=== PATIENT | female | born 1990 | race Caucasian/White ===

== ENCOUNTER 2022-12-21 12:47 | Inpatient (IN) | payer BC ==
[~2022-12-21] VITALS: Ht 165.1 cm; Wt 71.4 kg
--- NOTE | 2022-12-21 12:55 | NUR ---
JAMARI RA60 From Home "Kidney pain/L stent placement couple months ago pain worse today"
--- NOTE | 2022-12-21 13:15 | NUR ---
URINE SAMPLE OBTAINED
--- NOTE | 2022-12-21 13:55 | NUR ---
BLOOD SAMPLES OBTAINED
[2022-12-21] MEDS ORDERED: IV NS 0.9% 1,000 ML BAG IV ONE (14:00)
[2022-12-21 14:18] LABS: BILIRUBIN,URINE NEGATIVE (NEGATIVE); COLOR,URINE YELLOW (YELLOW); LEUKOCYTE ESTERASE ,URINE 3+ (NEGATIVE); NITRITE, URINE POSITIVE (NEGATIVE); PH,URINE 6.5 (5.0-8.0); PROTEIN,URINE 1+ mg/dl (NEGATIVE); UGLUCOSE NEGATIVE (NEGATIVE); UROBILINOGEN,URINE 0.2 EU/dL (0.2)
[2022-12-21] MEDS ORDERED: KETOROLAC TROMETHAMINE INJ 30 MG/ML VIAL ONE (14:28)
[2022-12-21] MEDS ORDERED: KETOROLAC TROMETHAMINE INJ 30 MG/ML VIAL IV ONE (14:30)
[2022-12-21 14:32] LABS: ALBUMIN 3.5 g/dL (3.4-5.0); BILIRUBIN,TOTAL 0.2 mg/dL (0.2-1.0); CALCIUM, SERUM 8.5 mg/dL (8.5-10.1); CREATININE 0.7 mg/dL (0.6-1.3); POTASSIUM 3.9 mmol/L (3.5-5.1); TOTAL PROTEIN, SERUM 7.4 g/dL (6.4-8.2)
--- NOTE | 2022-12-21 14:32 | NUR ---
[facility]
--- NOTE | 2022-12-21 14:39 | NUR ---
pt back from ct scan
[2022-12-21 15:17] LABS: RBC,URINE 21-50 /HPF (0-2)
[2022-12-21 15:18] LABS: BACTERIA,URINE Many /HPF (None Seen); SQUAMOUS EPITHELIAL CELL,UR Many /HPF (None Seen); WBC,URINE 51-80 /HPF (0-3)
--- NOTE | 2022-12-21 15:19 | NUR ---
made aware, pt wants to have food. DR BAIN REPLIED NOT YET
[2022-12-21 15:20] LABS: URINE AMORPHOUS URATE Many /HPF (None Seen)
[2022-12-21 15:25] LABS: BASOPHILS % (AUTO) 0.9 % (0.0-2.0); EOSINOPHILS % (AUTO) 2.8 % (0.0-6.0); HEMATOCRIT 31 % (33-45); LYMPHOCYTES % (AUTO) 40.9 % (20.0-44.0); MEAN CORPUSCULAR HGB CONC 32 g/dl (31.0-36.0); MEAN CORPUSCULAR VOLUME 82 fL (82-100); MONOCYTES # (AUTO) 0.4 K/uL (0.1-1.30); MONOCYTES % (AUTO) 8.4 % (2.0-12.0); NEUTROPHILS # (AUTO) 2.3 K/uL (1.8-8.9); PLATELET COUNT (AUTO) 287 K/uL (150-450); RED BLOOD CELL COUNT(AUTO) 3.77 MIL/uL (4.0-5.2)
--- NOTE | 2022-12-21 16:09 | NUR ---
COVID SWAB OBTAINED
--- NOTE | 2022-12-21 16:12 | NUR ---
MOVE SHEET SUBMITTED.
[2022-12-21] MEDS ORDERED: MORPHINE SULFATE INJ 2 MG/ML DISP.SYRIN ONE (16:13)
[2022-12-21] MEDS ORDERED: ESCI10TA PO (16:29)
[2022-12-21] MEDS ORDERED: MORPHINE SULFATE INJ 2 MG/ML DISP.SYRIN IV ONE (16:30)
[2022-12-21] MEDS ORDERED: CEFTRIAXONE 1GM BAG (ER ONLY) 50 ML IV ONE (17:19)
[2022-12-21] MEDS ORDERED: ZOLPIDEM TARTRATE 5 MG TABLET PO PRN (17:30)
[2022-12-21] MEDS ORDERED: ONDANSETRON HCL/PF 4 MG/2 ML VIAL IVP PRN (17:30)
[2022-12-21] MEDS ORDERED: MAGNESIUM HYDROXIDE 30 ML UDC PO PRN (17:30)
[2022-12-21] MEDS ORDERED: ACETAMINOPHEN 325 MG TABLET PO PRN (17:30)
[2022-12-21] MEDS ORDERED: MAG HYDROX/AL HYDROX/SIMETH 30 ML UDC PO PRN (17:30)
[2022-12-21] MEDS ORDERED: Z GUARD REMEDY 4 OZ OINT TP PRN (17:30)
[2022-12-21] MEDS ORDERED: CEFTRIAXONE 1GM BAG (ER ONLY) 1 GM/50 ML PIGGYBACK IV ONE (17:30)
--- NOTE | 2022-12-21 18:11 | NUR ---
Room assigned 329 (1) - RNAzael Farnsworth per [facility]
--- NOTE | 2022-12-21 18:20 | NUR ---
GIVEN REPORT TO MARIA LUISA BERGER FOR CONTINUATION OF CARE ROOM 329
--- NOTE | 2022-12-21 18:35 | NUR ---
MOVED TO INPATIENT ROOM SAFELY PER PROTOCOL
--- NOTE | 2022-12-21 19:00 | NUR ---
MS SUPERVISOR LEAD BURNING NOTE PT WAS ADMITTED FROM ER AND BEING TRANSPORTED TO THE UNIT AT 1845 ACCORDING TO THE CHANGE SHIFT REPORT. PT IS SITTING IN THE BED, GUARDING HER ABD. PT IS ALERT AND ORIENTED, AO X 4. SHE IS ON RA, TOLERATED WELL. VITAL SIGNS WERE TAKEN, WNL. PT STATS SHE IS HAVING PAIN 8 OUT OF 10 AT HER ABD CURRENTLY. CHECKED HER MEDICATION HISTORY, SHE HAD MORPHINE 2 MG IV AT ER @1620. WILL MONITOR THE PT AND GIVE HER PAIN MEDICATIONS PER MD ORDER. IV ACCESS IS AT HER L HAND, #20G, SL. FLUSHED WELL WITH 10 CC OF NS. IV SITE IS PATENT AND INTACT. ORIENTED THE PT WITH SURROUNDINGS, AND INSTRUCTED PT TO CALL WHEN SHE NEEDS HELP. PT VERBALIZED UNDERSTANDING. SAFETY MEASURES ARE IN PLACED: BED IN LOWEST AND LOCKED POSITION; SIDE RAILS UP X 2; CALL LIGHT AND TABLE ARE WITHIN REACH. WILL MONITOR THE PT AND PROVIDE THE CARE PT NEEDS.
[2022-12-21 19:30] VITALS: BP 133/77
[2022-12-21] MEDS: IV NS 0.9% 1,000 ML IV PRN (19:51)
[2022-12-21] MEDS: MORPHINE SULFATE INJ 2 MG/ML DISP.SYRIN IV PRN (19:53)
--- NOTE | 2022-12-21 19:55 | NUR ---
MS RN NOTE PT STATED SHE WAS HAVING PAIN AT ABD, 04/11. PRN IV MEDICATION, MORPHINE, ADMINISTERED PER MD ORDER.
[2022-12-21 20:00] VITALS: BP 103/70
[2022-12-21 21:00] VITALS: BP 103/70
[2022-12-22] MEDS: MORPHINE SULFATE INJ 2 MG/ML DISP.SYRIN IV PRN ×3 (00:35→14:25)
--- NOTE | 2022-12-22 00:35 | NUR ---
MS RN NOTE PT STATED SHE WAS HAVING PAIN AT ABD, 04/11. PRN IV MEDICATION, MORPHINE, ADMINISTERED PER MD ORDER.
[2022-12-22] MEDS: IV NS 0.9% 1,000 ML IV PRN (04:16)
[2022-12-22 06:20] LABS: BASOPHILS % (AUTO) 0.8 % (0.0-2.0); EOSINOPHILS % (AUTO) 4.4 % (0.0-6.0); HEMATOCRIT 31 % (33-45); HEMOGLOBIN 9.9 g/dL (11.5-14.8); LYMPHOCYTES # (AUTO) 1.7 K/uL (0.8-4.8); LYMPHOCYTES % (AUTO) 37.8 % (20.0-44.0); MEAN CORPUSCULAR HGB CONC 32 g/dl (31.0-36.0); MEAN CORPUSCULAR VOLUME 83 fL (82-100); MONOCYTES # (AUTO) 0.4 K/uL (0.1-1.30); MONOCYTES % (AUTO) 8.5 % (2.0-12.0); NEUTROPHILS # (AUTO) 2.2 K/uL (1.8-8.9); NEUTROPHILS % (AUTO) 48.5 % (43.0-81.0); PLATELET COUNT (AUTO) 251 K/uL (150-450); WHITE BLOOD COUNT (AUTO) 4.6 K/uL (4.3-11.0)
--- NOTE | 2022-12-22 06:48 | NUR ---
MS RN CLOSING NOTE PT IS SLEEPING IN BED, EASILY BEING AROUSED. SHE IS ALERT AND ORIENTED, AO X 4. PT IS ON RA, TOLERATED WELL. NO S/S OF DISTRESS OR SOB. IV ACCESS IS AT HER L HAND, #20G, INFUSING NS @ 125 ML/HR. DURING THE SHIFT, PATIENT HAS REQUESTED PRN MEDICATIONS FOR ABD PAIN. CURRENTLY, PT DENIES OF HAVING PAIN. SAFETY MEASURES ARE IN PLACED: BED IN LOWEST AND LOCKED POSITION; SIDE RAILS UP X 2; CALL LIGHT AND TABLE ARE WITHIN REACH. WILL ENDORSE NEXT SHIFT NURSE FOR CONTINUING PT CARE.
[2022-12-22 07:25] LABS: CALCIUM, SERUM 8.1 mg/dL (8.5-10.1); CREATININE 0.6 mg/dL (0.6-1.3); POTASSIUM 4.3 mmol/L (3.5-5.1)
--- NOTE | 2022-12-22 07:25 | NUR ---
MS RN OPENING NOTE RECEIVED PT IN BED, AWAKE, AMBULATORY. A/O X 4, ABLE TO MAKE NEEDS KNOWN. STILL COMPLAINTS OF FLANK PAIN. ON RA, TOLERATING WELL. IV ACCESS IN L HAND, #20G WITH ONGOING NS @ 125 ML/HR, INFUSING WELL. SAFETY MEASURES IN PLACED: BED IN LOWEST AND LOCKED POSITION; SIDE RAILS UP X 2; CALL LIGHT AND TABLE ARE WITHIN REACH. WILL CONTINUE TO MONITOR.
[2022-12-22 08:00] VITALS: BP 94/58
[2022-12-22] MEDS ORDERED: DIAZEPAM 5 MG/ML 2 ML DISP.SYRIN IV PRN (08:30)
[2022-12-22] MEDS: ESCITALOPRAM OXALATE (10 MG) 10 MG TABLET PO SCH (08:47)
[2022-12-22] MEDS: KETOROLAC TROMETHAMINE INJ 30 MG/ML VIAL IV SCH ×3 (08:49→21:05)
--- NOTE | 2022-12-22 10:25 | NUR ---
RN NOTE PATIENT VERBALIZED SHE HAD TERRIBLE PAIN AFTER GOING TO THE BATHROOM, WITH SCALE OF 10/10. MORPHINE 2MG/ML INJ PRN GIVEN AT 1018. WILL CONTINUE TO MONITOR.
--- NOTE | 2022-12-22 14:32 | NUR ---
RN NOTE PATIENT CRYING AND VERBALIZED SHE IS IN PAIN, WITH SCALE OF 9/10. REFUSED TORADOL. MORPHINE 2MG/ML INJ PRN GIVEN AT 1425. WILL CONTINUE TO MONITOR.
[2022-12-22] MEDS ORDERED: HYDROCODONE/APAP 10/325MG TABLET PO PRN (15:00)
[2022-12-22 15:10] VITALS: BP 109/62
[2022-12-22] MEDS ORDERED: K PHOS NEUTRAL 250 MG TABLET PO ONE (15:30)
[2022-12-22] MEDS: CEFTRIAXONE 1 G in IV D5W 50 ML IV SCH (17:06)
[2022-12-22] MEDS: HYDROMORPHONE INJ 2 MG/ML DISP.SYRIN IV PRN ×2 (17:13→23:15)
--- NOTE | 2022-12-22 17:15 | NUR ---
RN NOTE PATIENT CRYING AND VERBALIZED SHE IS IN PAIN WITH SCALE OF 8-9/10 AND WANTS HER NEW PAIN MED. DILAUDID 2MG/ML INJ PRN GIVEN AT 1713. WILL CONTINUE TO MONITOR.
--- NOTE | 2022-12-22 18:36 | NUR ---
MS RN CLOSING NOTE PT RESTING IN BED. A/O X 4, ABLE TO MAKE NEEDS KNOWN. NO C/O PAIN/DISCOMFORT AT THIS TIME. ON RA, TOLERATING WELL. IV ACCESS IN L HAND, #20G, SL. NEEDS ATTENDED. SAFETY MEASURES IN PLACED: BED IN LOWEST AND LOCKED POSITION; SIDE RAILS UP X 2; CALL LIGHT AND TABLE ARE WITHIN REACH. WILL ENDORSE YAZMIN TO SHOULDER SAWYER.
--- NOTE | 2022-12-22 19:55 | NUR ---
MS RN OPENING NOTE RECEIVED PT IN BED, AWAKE. PT A/O X 4, ABLE TO MAKE NEEDS KNOWN. NO C/O PAIN AT THIS TIME. ON RA, TOLERATING WELL. IV ACCESS TO LEFT HAND, #20G WITH NS RUNNING AT 125 ML/HR, IV PATENT, AND INFUSING WELL. SAFETY MEASURES IN PLACE: BED LOCKED IN LOWEST POSITION; SIDE RAILS UP X 2; CALL LIGHT AND TABLE WITHIN REACH. WILL CONTINUE TO MONITOR PT.
[2022-12-22 20:00] VITALS: BP 100/62
--- NOTE | 2022-12-22 23:15 | NUR ---
MS RN NOTE PT REPORTS PAIN TO BACK, AND ABDOMEN. DILAUDID ADMINISTERED TO PT.
[2022-12-23] MEDS: KETOROLAC TROMETHAMINE INJ 30 MG/ML VIAL IV SCH ×2 (02:38→08:49)
--- NOTE | 2022-12-23 06:55 | NUR ---
MS RN CLOSING NOTE LEFT PT IN BED, AWAKE. PT A/O X 4, ABLE TO MAKE NEEDS KNOWN. NO C/O PAIN AT THIS TIME. ON RA, TOLERATING WELL. IV ACCESS TO LEFT HAND, #20G WITH NS RUNNING AT 120 ML/HR, IV PATENT, AND INFUSING WELL. SAFETY MEASURES IN PLACE: BED LOCKED IN LOWEST POSITION; SIDE RAILS UP X 2; CALL LIGHT AND TABLE WITHIN REACH. WILL ENDORSE PT TO AM SHIFT NURSE FOR YAZMIN.
--- NOTE | 2022-12-23 07:30 | NUR ---
SAMPLER FIRST OPENING NOTE PATIENT RECEIVED ASLEEP A/O X4, AWAKES TO VERBAL STIMULI. ON ROOM AIR, BREATHING EVEN AND UNLABORED, WITH NO S/S OF SOB. COMPLAINTS OF ABDOMINAL PAIN. PAIN LEVEL 10. IV ACCESS ON THE LEFT HAND G#20 INTACT AND PATENT, FLUSHING WELL. FALL AND SAFETY PRECAUTION ARE IN PLACE: BED AT THE LOWEST POSITION, LOCKED, SRx2,CALL LIGHT WITHIN REACH. PAIN MEDICATION WAS ADMINISTERED ORDERED.
[2022-12-23] MEDS: HYDROMORPHONE INJ 2 MG/ML DISP.SYRIN IV PRN ×3 (07:52→15:11)
[2022-12-23 08:25] VITALS: BP 101/65
[2022-12-23] MEDS: ESCITALOPRAM OXALATE (10 MG) 10 MG TABLET PO SCH (08:56)
[2022-12-23 09:57] LABS: BASOPHILS % (AUTO) 0.8 % (0.0-2.0); HEMATOCRIT 31 % (33-45); HEMOGLOBIN 9.9 g/dL (11.5-14.8); LYMPHOCYTES # (AUTO) 1.5 K/uL (0.8-4.8); LYMPHOCYTES % (AUTO) 35.8 % (20.0-44.0); MEAN CORPUSCULAR HGB CONC 32 g/dl (31.0-36.0); MEAN CORPUSCULAR VOLUME 84 fL (82-100); MONOCYTES # (AUTO) 0.3 K/uL (0.1-1.30); MONOCYTES % (AUTO) 7.2 % (2.0-12.0); NEUTROPHILS # (AUTO) 2.2 K/uL (1.8-8.9); NEUTROPHILS % (AUTO) 52.2 % (43.0-81.0); PLATELET COUNT (AUTO) 232 K/uL (150-450); RED BLOOD CELL COUNT(AUTO) 3.74 MIL/uL (4.0-5.2); WHITE BLOOD COUNT (AUTO) 4.2 K/uL (4.3-11.0)
[2022-12-23 10:07] LABS: CALCIUM, SERUM 8.5 mg/dL (8.5-10.1); CREATININE 0.7 mg/dL (0.6-1.3); POTASSIUM 4.7 mmol/L (3.5-5.1)
[2022-12-23] MEDS: IV NS 0.9% 1,000 ML IV PRN (10:31)
[2022-12-23] MEDS ORDERED: KETOROLAC TROMETHAMINE INJ 30 MG/ML VIAL IV SCH (15:00)
[2022-12-23 15:36] VITALS: BP 109/66
[2022-12-23] MEDS: CEFTRIAXONE 1 G in IV D5W 50 ML IV SCH (18:19)
--- NOTE | 2022-12-23 18:40 | NUR ---
GUEST HOUSE MANAGER CLOSING NOTE PATIENT IN BED RESTING, A/O X4, ON ROOM AIR, BREATHING EVEN AND UNLABORED, WITH NO S/S OF SOB. MEDICATION ADMINISTERED SCHEDULED. MONITORING OF PAIN MANAGEMENT. IV ACCESS ON THE LEFT HAND G#20 INTACT AND PATENT, FLUSHING WELL. CONTINUES ANTIBIOTICS. FALL AND SAFETY PRECAUTION ARE IN PLACE: BED AT THE LOWEST POSITION, LOCKED, SRx2,CALL LIGHT WITHIN REACH.
--- NOTE | 2022-12-23 19:30 | NUR ---
MS RN OPENING NOTES RECEIVED PATIENT AWAKE IN BED. PATIENT IS A/O TIMES 4. ABLE TO MAKE NEEDS KNOWN . NO PAIN NOTED. NO SOB NOTED. NO DISTRESS NOTED. ON ROOM AIR AND TOLERATING WELL. ALL NEEDS ATTENDED. IV ACCESS ON THE LEFT HAND # 22 INTACT . RUNNING NS AT 120 ML/HR. ALL SAFETY MEASURES IN PLACE. BED LOCKED IN THE LOWEST POSITION. CALL LIGHT AND TABLE IN EASY REACH. SIDE RAILS UP . WILL CONTINUE TO MONITOR CLOSELY.
[2022-12-23 20:00] VITALS: BP 109/64
--- NOTE | 2022-12-23 22:30 | NUR ---
RN NOTES PATIENT CALLED AROUND 2200 AND STATED SHE WANTS TO GO HOME . PREVIOUS SHIFT NURSE STATED THAT TOMORROW IS THE PATIENT'S BIRTHDAY AND THE PATIENT WANTED TO GO HOME SINCE MORNING.WHEN I WENT TO THE PATIENT'S ROOM , PATIENT STATED : " SHE MADE HER DECISION AND SHE WANTS TO GO HOME." EXPLAINED TO THE PATIENT THAT FIRST I HAVE TO CHECK WITH THE DR. AND DOCTOR NEEDS TO KNOW, THEN EXPLAINED TO THE PATIENT THAT IF SHE LEAVES , IT WILL BE AGAINST MEDICAL ADVICE, AND SHE AGREED TO FOLLOW UP WITH THE [employer] TECHNICAL OFFICER AND IN CASE OF ANY EMERGENCY CALL 911 OR GO TO THE NEAREST ER. PATIENT STATED [birth year] IS HER BIRTHDAY AND SHE WANTS TO LEAVE. INFORMED TECHNOLOGY PROGRAM MANAGER GILDARDO AND SHE AGREED. PATIENT SIGNED THE AMA PAPER AT 2215. ALL THE BELONGINGS ACCOUNTED AND SIGNED FOR. PATIENT ALSO HAD 2 VAPE IN THE NURSES STATION WHICH I GAVE HER UPON LEAVE. IV SITE REMOVED COVERED WITH DRY DRESSING. ID BAND REMOVED . ALL NEEDS ATTENDED. NO PAIN NOTED. NO SOB NOTED. NO DISTRESS NOTED. VITAL SIGNS STABLE. WALKED WITH THE PATIENT THROUGH ER DOOR. PATIENT LEFT HOSPITAL AT 2227 AGAINST MEDICAL ADVICE IN STABLE CONDITION. PICKED THE PATIENT FROM OUTSIDE ER DOOR. MD AND CHARGE NURSE AWARE OF THE PATIENT'S LEAVE.
[2022-12-23] MEDS ORDERED: CEPH500C2 PO (22:47)
== END 2022-12-23 22:30 | disposition left against medical advice (07) | DRG 690 ==
LOC: ER 12:50 → MED 18:27
PROVIDERS: ADMIT Nurse Practitioner Acute Care; ATTEND Nurse Practitioner Acute Care
DX: N13.6 Pyonephrosis (principal); D64.9 Anemia, unspecified; K59.00 Constipation, unspecified; Z87.442 Personal history of urinary calculi; R74.01 Elevation of levels of liver transaminase levels; S32.018D Other fracture of first lumbar vertebra, subsequent encounter for fracture with routine healing; S32.028D Other fracture of second lumbar vertebra, subsequent encounter for fracture with routine healing; S32.038D Other fracture of third lumbar vertebra, subsequent encounter for fracture with routine healing; S32.048D Other fracture of fourth lumbar vertebra, subsequent encounter for fracture with routine healing; S22.31XD Fracture of one rib, right side, subsequent encounter for fracture with routine healing; W10.9XXD Fall (on) (from) unspecified stairs and steps, subsequent encounter; Z20.822 Contact with and (suspected) exposure to COVID-19
CPT/HCPCS: 36415; 80048-TC; 80076-TC; 81001; 83735-TC; 84100-TC; 84702-TC; 84703-TC; 85025-TC; 87081-TC; 87086-TC; A4223; C9803; G0378; J0696; J1170; J1885; J2270; J7030; J7060